=== PATIENT | female | born 1940 | race Caucasian/White ===

== ENCOUNTER → 2017-02-24 | Outpatient (CLI) | payer MEDICARE, MEDICAID ==
[~2017-02-24] MED LIST: AML5T PO; ASPI81CH49 PO; CALC-437 OR; MULTTAB99 PO; PHE100C PO; PROBCAP38 OR
== END | disposition home or self-care (01) ==
LOC: Rad HDHVI 14:41
PROVIDERS: ATTEND Internal Medicine Cardiovascular Disease
DX: Z86.718 Personal history of other venous thrombosis and embolism (principal)
CPT/HCPCS: 93970